=== PATIENT | female | born 1995 | race Caucasian/White ===

== ENCOUNTER → 2016-11-17 | Outpatient (REF) ==
[~2016-11-17] MED LIST: OMNICEF 300MG300 MG PO; ZOFRAN 4MG T4 MG/TAB PO
== END ==
LOC: COL.EMP 09:10
DX: Z02.1 Encounter for pre-employment examination (principal)

== ENCOUNTER → 2016-12-08 | Outpatient (REF) | LOC: WSOH 11:42 | DX: Z02.1 Encounter for pre-employment examination (principal) ==